=== PATIENT | female | born 1980 | race Caucasian/White ===

== ENCOUNTER 2019-01-28 12:41 | Day surgery (SDC) | payer OTHER ==
[~2019-01-28 12:41] MED LIST: LIDOCAINE HCL 1% MPF 30 SOL ONE; PROPOFOL 500 MG/50 ML EMU IV ONE
[2019-01-28 14:12] VITALS: O2SAT 100
[2019-01-28 15:06] VITALS: BP 112/76; PULSE 68; RESP 18; TEMP 97.7
== END 2019-01-28 15:00 | disposition home or self-care (01) | DRG 812 ==
LOC: SURG 12:41
PROVIDERS: ATTEND Surgery
DX: D50.0 Iron deficiency anemia secondary to blood loss (chronic) (principal); K62.5 Hemorrhage of anus and rectum; L53.8 Other specified erythematous conditions; K52.89 Other specified noninfective gastroenteritis and colitis
CPT/HCPCS: 84703; 99001; J2001; J2704